=== PATIENT | male | born 1985 | race Caucasian/White ===

== ENCOUNTER → 2017-09-12 | Outpatient (CLI) | payer OTHER ==
[~2017-09-12] VITALS: Ht 182.9 cm; Wt 88.4 kg
[~2017-09-12] MED LIST: HYDR-906 PO
[2017-09-12 14:47] VITALS: BP 116/66; PULSE 74; RESP 18; Ht 182.9 cm; Wt 88.4 kg
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
== END | disposition home or self-care (01) ==
LOC: DCC 14:21
PROVIDERS: ATTEND Internal Medicine
DX: R10.9 Unspecified abdominal pain (principal); S31.119D Laceration without foreign body of abdominal wall, unspecified quadrant without penetration into peritoneal cavity, subsequent encounter; S61.412D Laceration without foreign body of left hand, subsequent encounter; X58.XXXD Exposure to other specified factors, subsequent encounter; K76.9 Liver disease, unspecified

== ENCOUNTER 2017-09-19 11:28 | Outpatient (CLI) | payer OTHER ==
[2017-09-19 12:37] VITALS: BP 110/73; PULSE 93; RESP 18
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
== END 2017-09-19 17:00 | disposition home or self-care (01) ==
LOC: DCC 11:28
PROVIDERS: ATTEND Internal Medicine
DX: S31.113D Laceration without foreign body of abdominal wall, right lower quadrant without penetration into peritoneal cavity, subsequent encounter (principal); S61.412D Laceration without foreign body of left hand, subsequent encounter; W26.9XXD Contact with unspecified sharp object(s), subsequent encounter
CPT/HCPCS: G0463